=== PATIENT | male | born 1960 | race Caucasian/White ===

== ENCOUNTER 2023-01-27 07:43 | Day surgery (SDC) | payer MEDICARE ==
[2023-01-27] VITALS (9 sets, daily range): BP systolic 95–109; BP diastolic 57–76; PULSE 64–74; RESP 16; TEMP 97.9; O2SAT 92–97
[~2023-01-27] VITALS: Ht 175.3 cm; Wt 71.2 kg
[~2023-01-27 07:43] MED LIST: ATOR20TA66 PO; CITA40TA17 PO; DILT-94 PO; FLO0.4C PO; METO-395 PO; NITR0.4T51 SL; PANT40TA54 PO; RIVA20TA PO; ROPI0.2544 PO
[2023-01-27] MEDS ORDERED: normal saline 1,000 ML IV SCH (08:00)
[2023-01-27] MEDS ORDERED: diphenhydrAMINE 25mg capsule PO PRN (08:00)
[2023-01-27] MEDS ORDERED: FERR-106 PO (09:11)
[2023-01-27] MEDS ORDERED: TRAZ-251 PO (09:11)
[2023-01-27] MEDS ORDERED: DIGO125T2 PO (09:11)
[2023-01-27] MEDS ORDERED: LORA-268 PO (09:11)
[2023-01-27] MEDS ORDERED: FURO40TA4 PO (09:11)
[2023-01-27] MEDS ORDERED: HYDR-3686 PO (09:11)
[2023-01-27 09:13] LABS: ALBUMIN 3.5 G/DL (3.4-5.0); BASOPHILS # (AUTO) 0.1 X10'3 (0-0.2); BASOPHILS % (AUTO) 1.4 % (0-1); BLOOD UREA NITROGEN 9 MG/DL (7-18); BUN/CREATININE RATIO 6.3 (10.0-20.0); CALCIUM 9.1 MG/DL (8.5-10.1); CHLORIDE 101 MMOL/L (99-107); CREATININE 1.44 MG/DL (0.60-1.10); EOSINOPHILS # (AUTO) 0.2 X10'3 (0-0.9); EOSINOPHILS % (AUTO) 1.7 % (0-6); LYMPHOCYTES # (AUTO) 1.5 X10'3 (1.1-4.8); LYMPHOCYTES % (AUTO) 16.4 % (21-51); MEAN CORPUSCULAR HEMOGLOBIN 30.9 PG (27.0-31.0); MEAN CORPUSCULAR HGB CONC 33.8 g/dL (33.0-36.5); MEAN CORPUSCULAR VOLUME 91.5 FL (78-98); MEAN PLATELET VOLUME 7.5 FL (7.4-10.4); MONOCYTES # (AUTO) 0.5 X10'3 (0-0.9); MONOCYTES % (AUTO) 5.8 % (2-12); NEUTROPHILS # (AUTO) 6.7 X10'3 (1.8-7.7); NEUTROPHILS % (AUTO) 74.7 % (42-75); PRE OP ANION GAP 9 (8-16); PRE OP GLUCOSE 109 MG/DL (70-104); PRE OP HEMATOCRIT 39.7 % (42.0-52.0); PRE OP HEMOGLOBIN 13.4 g/dL (14.0-17.9); PRE OP PLATELET COUNT 236 X10'3 (140-440); PRE OP POTASSIUM 3.4 MMOL/L (3.4-5.1); PRE OP SODIUM 139 MMOL/L (135-145); PRE OP WHITE BLOOD COUNT 8.9 10'3 (4.8-10.8); RED BLOOD COUNT 4.34 X10'6 (4.70-6.10); RED CELL DISTRIBUTION WIDTH 14.5 % (11.5-14.5); TOTAL CARBON DIOXIDE 29.3 MMOL/L (24-32); eCRCL 53 ML/MIN; eGFR 50 ML/MIN
[2023-01-27 09:15] LABS: INR 1.1 INR; PROTHROMBIN TIME 11.8 SECONDS (9.0-12.0)
[2023-01-27] MEDS ORDERED: fentaNYL/PF 50MCG/1 ML 2ML syringe ONE (11:33)
[2023-01-27] MEDS ORDERED: midazolam 1 mg/ML 2ml injection ONE ×2 (11:33→12:22)
[2023-01-27] MEDS ORDERED: heparin 1,000unit/ml 10ml vial 10 ML ONE (11:33)
[2023-01-27] MEDS ORDERED: LIDOcaine 1% (10mg/ml)w/preservative inj. 20ml MDV ONE (11:33)
[2023-01-27] MEDS ORDERED: iohexol 350MG/ML 100ml bottle IV ONE (11:34)
[2023-01-27] MEDS ORDERED: HYDROcodone/acetaminophen 10/325mg tab PO PRN (13:05)
[2023-01-27] MEDS ORDERED: ondansetron/PF 4mg/2ml inj IV PRN (13:05)
[2023-01-27] MEDS ORDERED: proCHLORperazine 10 MG/2 ml inj IV PRN (13:05)
[2023-01-27] MEDS ORDERED: normal saline 1000ml 1,000 ML IV SCH (13:05)
[2023-01-27] MEDS ORDERED: HYDROcodone/acetaminophen 5mg/325mg tablet PO PRN (13:05)
== END 2023-01-27 15:55 | disposition home or self-care (01) ==
LOC: SSTAY O 07:43
PROVIDERS: ATTEND Internal Medicine Cardiovascular Disease
DX: I70.208 Unspecified atherosclerosis of native arteries of extremities, other extremity (principal); I70.8 Atherosclerosis of other arteries; Z79.899 Other long term (current) drug therapy; I25.10 Atherosclerotic heart disease of native coronary artery without angina pectoris; I48.91 Unspecified atrial fibrillation; F41.9 Anxiety disorder, unspecified; G47.30 Sleep apnea, unspecified
CPT/HCPCS: 36225; 36415; 80048; 85025; 85610; 93005; 93931; J1644; J2250; J3010; J3490; J7030; Q9967; 99152; A4620; A6258; C1894